=== PATIENT | male | born 1950 | race Caucasian/White ===

== ENCOUNTER 2022-03-05 16:21 | Emergency (ER) | payer MEDICARE ==
[2022-03-05 16:34] VITALS: BP 138/68
[2022-03-05] MEDS ORDERED: MAGNESIUM CITRATE 296 ML BOTTLE PO STA (16:51)
--- NOTE | 2022-03-05 16:52 | ED Physician Documentation ---
PD HPI ABD PAIN - Stated complaint Stated Complaint: CONSTIPATION - Chief complaint Chief Complaint: Abd Pain - History obtained from History obtained from: Patient, Family () - Additional information Additional information: 71-year-old gentleman has not had a good bowel movement in the last 3 days and now today is unable to urinate. He thinks is just because he has not been drinking much water. He does have a history of an enlarged prostate. Took 3 Percocet a couple of weeks ago for a bad tooth but not more recently. Review of Systems Constitutional: denies: Fever, Chills GI: reports: Abdominal Pain. denies: Nausea, Vomiting, Hematemesis, Bloody / black stool : reports: Hesitancy, Unable to Void PD PAST MEDICAL HISTORY - Present Medications Home Medications: Ambulatory Orders Medication Instructions Recorded Confirmed Lactulose [Generlac] 10 gm PO QID PRN #90 ml 03/05/22 - Allergies Allergies/Adverse Reactions: Allergies Allergy/AdvReac Type Severity Reaction Status Date / Time No Known Drug Allergies Allergy Verified 03/05/22 16:34 PD ED PE NORMAL - Vitals Vital signs reviewed: Yes - General General: Alert and oriented X 3, No acute distress - Abdomen Abdomen: Normal bowel sounds, Soft, Non tender - Rectal Rectal: Other (Large firm fecal impaction) - Neuro Neuro: Alert and oriented X 3, Normal speech Results - Vitals Vitals: Vital Signs - 24 hr 03/05/22 16:32 Temperature 37.1 C Heart Rate 101 H Respiratory 18 Rate Blood Pressure 138/68 H O2 Saturation 98 Oxygen O2 Source Room air PD MEDICAL DECISION MAKING - ED course ED course: 71-year-old gentleman presents with a fecal impaction and associated urinary retention. After the administration of a large enema he had a very large bowel movement and recovered his ability to urinate. He was feeling much better. Departure - Departure Disposition: 01 Home, Self Care Clinical Impression: Fecal impaction Condition: Stable Instructions: ED Impaction Fecal Treated Prescriptions: Lactulose [Generlac] 10 gm PO QID PRN #90 ml PRN Reason: Constipation Comments: You were seen today for a fecal impaction, we have relieve this. I am writing you for another laxative to start tomorrow if you feel like you are not fully cleaned out but we also gave you some oral laxative here. Drink plenty of water. Return for new or worsening symptoms. Follow-up with your primary care physician later this week.
== END 2022-03-05 17:35 | disposition home or self-care (01) ==
LOC: ED 16:21
DX: K56.41 Fecal impaction (principal)
CPT/HCPCS: 99282; A9270